=== PATIENT | male | born 1955 | race Caucasian/White ===

== ENCOUNTER 2016-11-16 15:03 | Emergency (ER) ==
[2016-11-16 15:14] VITALS: BMI 49.8
[2016-11-16] MEDS ORDERED: TYLENOL PO STA (15:40)
--- NOTE | 2016-11-16 15:41 | ED.PDOC ---
General ED Provider: Dr. ANA CORREA Chief Complaint: Fever Stated Complaint: patient is a 61 year old male who has a history of renal failure and is on dialysis via a fistular on the left arm. States he has been having a fever for the past 3 days. Highest temp was 102. Had dialysis today prior to arrival. Has had occasional cough for 3 days. has a chronic left foot ulcer and severe chronic lynphedma that is actually better per . Also reports mild left anterior leg pain. Time Seen by Physician: 15:40 Mode of Arrival: Wheelchair Information Source: Patient, Family Exam Limitations: No limitations Primary Care Provider: DUKE KHAN Nursing and Triage Documentation Reviewed and Agree: Yes Miscellaneous Complaint Exam - Febrile Illness/Adult Complaint/Exam Onset/Duration: 3 days Symptoms Are: Still present Timing: Constant Highest Temperature Recorded: 102 Initial Severity: Mild Current Severity: Mild Associated Signs and Symptoms: Denies: Headache, Fluid intake, Short of air, Cough, Sore throat, Nausea, Vomiting, Chills, Diaphoresis, Dysuria, Arthralgia, Stiff neck, Myalgia, Rash, Altered mental status Pseudomonas Risk Factors: Reports: None Serious Bacterial Infection Risk Factors: Reports: None Current Antibiotic Use: No Specific Findings: Absent: Meningeal signs, Diaphoresis, Joint swelling, Erythema, Cellulitis, Lymphadenopathy, Petechiae, CVA tenderness Differential Diagnoses: Bacteremia, Cellulitis Review of Systems - Review Of Systems Constitutional: Reports: Chills, Fever Eyes: Reports: No symptoms Ears, Nose, Mouth, Throat: Reports: No symptoms Respiratory: Reports: Cough Cardiac: Reports: No symptoms GI: Reports: No symptoms : Reports: No symptoms Musculoskeletal: Reports: No symptoms Skin: Reports: Other (left foot wound measuring 4 cm with some slough. ) Neurological: Reports: Anxiety Endocrine: Reports: No symptoms Hematologic/Lymphatic: Reports: No symptoms All Other Systems: Reviewed and Negative Past Medical History - Past Medical History Previously Healthy: No Endocrine: Reports: DM 2 Cardiovascular: Reports: Hypertension Respiratory: Reports: COPD Hematological: Reports: Anemia Gastrointestinal: Reports: None Genitourinary: Reports: Kidney stones, CKD (chronic leg edema) Neuro/Psych: Reports: None Musculoskeletal: Reports: Joint Pain Cancer: Reports: None Other Pertinent Past Medical History: Left foot wound with wound vac - Surgical History General Surgical History: Reports: Orthopedic (left toes amputation, right index finger surgery, nasal surgery ), Other (Dialysis shunt left arm ) - Family History Family History: Reports: Unknown - Social History Smoking Status: Never smoker Hx Substance Use: No Alcohol Screening: None Physical Exam - Physical Exam Appearance: Ill-appearing, Obese Ill-appearing: Severe Pain Distress: Mild Eyes: BONI, EOMI, Conjunctiva clear Neck: Supple Respiratory: Airway patent, Breath sounds clear, Breath sounds equal, Respirations nonlabored Cardiovascular: RRR, Pulses normal, No rub, No murmur Musculoskeletal: Edema (Bilateral. ) Skin: Warm (Left foot wound ), Dry Psychiatric: Anxious Interpretation - Radiology Interpretation Radiology Interpretation By: ED Physician Radiology Results: Negative Exam Interpreted: CXR Physician Notification - Case Discussed Physician Notified: Dr Swan Time of Notification: 17:49 (accepted patient for transfer to [facility] ) Critical Care Note - Critical Care Note Total Time (mins): 0 Course - Course Hematology/Chemistry: 11/16/16 15:45 11/16/16 15:45 Orders, Labs, Meds: Lab Review 11/16/16 11/16/16 11/16/16 15:45 16:10 16:30 WBC 13.42 H RBC 2.64 L Hgb 7.3 L Hct 23.5 L MCV 89.0 MCH 27.7 MCHC 31.1 L RDW Coeff of Mendoza 15.1 H Plt Count 224 Immature Gran % (Auto) 0.4 Neut % (Auto) 80.3 Lymph % (Auto) 11.3 [place] % (Auto) 6.9 Eos % (Auto) 0.9 Baso % (Auto) 0.2 Immature Gran # (Auto) 0.1 Neut # 10.8 H Lymph # 1.5 [place] # 0.9 Eos # 0.1 Baso # 0.0 ESR 108 H Sodium 139 Potassium 3.6 Chloride 95 L Carbon Dioxide 34 H Anion Gap 13.6 BUN 23 H Creatinine 2.63 H Estimated GFR (MDRD) 25.00 BUN/Creatinine Ratio 8.74 Glucose 120 H Calcium 8.5 Total Bilirubin 0.90 AST 18 ALT 14 Alkaline Phosphatase 147 H Total Protein 7.0 Albumin 2.5 L Globulin 4.5 Albumin/Globulin Ratio 0.56 Procalcitonin 0.41 Urine Color Dark Urine Clarity Cloudy Urine pH 5.5 Ur Specific [place] 1.025 Urine Protein 3+ Urine Glucose (UA) 1+ Urine Ketones Negative Urine Blood 2+ Urine Nitrite Negative Urine Bilirubin 1+ Urine Urobilinogen 1.0 Ur Leukocyte Esterase Negative Urine Microscopic RBC 5-10 Urine Microscopic WBC 2-5 Ur Squamous Epith Cells 2-5 Urine Bacteria 1+ Hyaline Casts 0-2 Fine Granular Casts 2-5 Influenza A (Rapid) Negative Influenza B (Rapid) Negative Orders Category Date Time Status ED IV/MEDIPORT/POWERPORT .ONCE EMERGENCY 11/16/16 17:22 Active BLOOD CULTURE Stat LAB 11/16/16 15:45 Received CBC W/ AUTO DIFF Stat LAB 11/16/16 15:45 Completed COMPREHENSIVE METABOLIC PANEL Stat LAB 11/16/16 15:45 Completed ESR Stat LAB 11/16/16 15:45 Completed MOLECULAR GROUP A STREP Stat LAB 11/16/16 16:30 Results PROCALCITONIN Stat LAB 11/16/16 15:45 Completed RAPID FLU A/B Stat LAB 11/16/16 16:30 Completed STREP SCREEN Stat LAB 11/16/16 16:30 Results UA [URINALYSIS C & S IF INDICATED] Stat LAB 11/16/16 16:10 Completed URINE CULTURE Stat LAB 11/16/16 16:10 Received 0.9 % Sodium Chloride [Saline Flush] MEDS 11/16/16 17:21 Ordered 1 syr IVF PRN PRN Acetaminophen [Tylenol] MEDS 11/16/16 15:40 Discontinued 1,000 mg PO ONCE STA Piperacillin Sodium/Tazobactam [Zosyn] 2.25 gm MEDS 11/16/16 17:21 Discontinued 0.9 % Sodium Chloride [Sodium Chloride] 100 ml IV ONCE Vancomycin HCl [Vancomycin] 1 gm MEDS 11/16/16 17:48 Discontinued 0.9 % Sodium Chloride [Sodium Chloride] 250 ml IV ONCE CHEST, 1V AP ONLY Stat RADS 11/16/16 15:28 Completed Medications Generic Name Dose Route Start Last Admin Trade Name Freq PRN Reason Stop Dose Admin Sodium Chloride 1 syr 11/16/16 17:21 11/16/16 18:13 Saline Flush IVF 1 syr PRN PRN Administration To flush IV Discontinued Medications Generic Name Dose Route Start Last Admin Trade Name Freq PRN Reason Stop Dose Admin Acetaminophen 1,000 mg 11/16/16 15:40 11/16/16 15:56 Tylenol PO 11/16/16 15:41 1,000 mg ONCE STA Administration Piperacillin Sod/Tazobactam 100 mls @ 100 mls/hr 11/16/16 17:21 11/16/16 19: 20 Sod 2.25 gm/ Sodium Chloride IV 11/16/16 18:20 100 mls/hr ONCE STA Administration Vancomycin HCl 1 gm/ Sodium 250 mls @ 250 mls/hr 11/16/16 17:48 11/16/16 18: 13 Chloride IV 11/16/16 18:47 250 mls/hr ONCE STA Administration Vital Signs: Temp Pulse Resp BP Pulse Ox 11/16/16 15:04 101 F H 70 16 124/68 93 L Departure - Departure Time of Disposition: 19:55 Disposition: TSF SHORT-TRM HOSP Discharge Problem: Anemia Qualifiers: Anemia type: other cause Other causes of anemia: chronic disease, kidney Qualifier Code: (N18.9) Chronic kidney disease, unspecified Fever Qualifiers: Fever type: other Qualifier Code: (R50.81) Fever presenting with conditions classified elsewhere Condition: Fair Pt referred to PMD for follow-up: No (transfered ) Allergies/Adverse Reactions: Allergies tuberculin, purified protein deriva [Tuberculin,Purif.Prot.Deriv.] Adverse Reaction (Verified 11/16/16 15:13) Home Medications: Ambulatory Orders Furosemide [Lasix Tab] 60 mg PO DAILY 03/26/14 Insulin Aspart [Novolog Insulin] 10 unit SUBCUT AC PRN 03/26/14 Insulin Glargine,Hum.rec.anlog [Lantus] 40 unit SUBCUT DAILY PRN 03/26/14 Carvedilol 6.25 mg PO BID 12/13/15 Gabapentin 300 mg PO TID 12/13/15 Nifedipine [Procardia Xl] 60 mg PO DAILY 12/13/15 Pantoprazole Sodium [Protonix] 40 mg PO DAILY 12/13/15 Pnv95/Ferrous Fumarate/FA [ Multivitamins Tablet] 1 tab PO DAILY Folic Acid 1 mg PO DAILY 11/16/16 Pt. Stabilized Within Hospital's Capabilities/Transferred To: [facility] [place] Disposition Discussed With: Patient, Family
[2016-11-16 16:03] LABS: BASOPHILS % (AUTO) 0.2 % (0.0-3.0); EOSINOPHILS # (AUTO) 0.1 K/ul (0.0-0.7); EOSINOPHILS % (AUTO) 0.9 % (0.0-7.0); HEMATOCRIT 23.5 % (42.0-52.0); HEMOGLOBIN 7.3 g/dl (14.0-18.0); IMMATURE GRANULOCYTE % (AUTO) 0.4 % (0.0-5.0); LYMPHOCYTES # (AUTO) 1.5 K/uL (0.60-3.4); LYMPHOCYTES % (AUTO) 11.3 (10.0-50.0); MEAN CORPUSCULAR HEMOGLOBIN 27.7 pg (27.0-31.0); MEAN CORPUSCULAR HGB CONC 31.1 (31.8-35.4); MONOCYTES # (AUTO) 0.9 K/uL (0.4-2.0); MONOCYTES % (AUTO) 6.9 (0-10); NEUTROPHILS # (AUTO) 10.8 K/ul (2.0-6.9); NEUTROPHILS % (AUTO) 80.3; PLATELET COUNT 224 10^3/uL (140-440); RED BLOOD COUNT 2.64 10^6/ul (4.70-6.10); WHITE BLOOD COUNT 13.42 K/ul (4.2-10.2)
[2016-11-16 16:17] LABS: ALBUMIN 2.5 g/dL (3.4-5.0); ALBUMIN/GLOBULIN RATIO 0.56; ANION GAP 13.6; BILIRUBIN,TOTAL 0.9 mg/dL (0.00-1.20); BUN/CREATININE RATIO 8.74; CALCIUM 8.5 mg/dL (8.2-10.2); CREATININE 2.63 mg/dL (0.60-1.10); POTASSIUM 3.6 mmol/L (3.5-5.1)
[2016-11-16 16:18] LABS: BILIRUBIN,URINE 1+ (NEGATIVE); KETONES,URINE Negative (NEGATIVE); LEUKOCYTE ESTERASE ,URINE Negative (NEGATIVE); NITRITE,URINE Negative (NEGATIVE); PH,URINE 5.5 (5-9); PROTEIN,URINE 3+ (NEGATIVE); URINE, BLOOD 2+ (NEGATIVE)
[2016-11-16 16:19] LABS: ADD URINE MICROSCOPIC YES
[2016-11-16 16:20] LABS: BACTERIA,URINE 1+ (NOT PRESENT)
[2016-11-16 16:39] LABS: ERYTHROCYTE SEDIMENTATION RATE 108 mm/hr (0-15); ESR INTERNAL QC INTERNAL QC VALID
--- NOTE | 2016-11-16 16:39 | DI ---
EXAM: Single view chest COMPARISON: Chest Xray from 03/14/2016 HISTORY: Fever FINDINGS: Lungs are clear with no lobar consolidation, failure, large effusion or significant atel ectasis. Again seen is cardiomegaly. No acute soft tissue or osseous abnormalities. IMPRESSION: 1. No active infiltrate. 2. Cardiomegaly.
[2016-11-16 17:13] LABS: FLU INTERNAL QC INTERNAL QC VALID; RAPID FLU A NEGATIVE (NEGATIVE); RAPID FLU B NEGATIVE (NEGATIVE)
[2016-11-16] MEDS ORDERED: ZOSYN 2.25 GM 2.25 GM in SODIUM CHLORIDE 100 ML IV STA (17:21)
[2016-11-16] MEDS ORDERED: VANCOMYCIN 1 GM in SODIUM CHLORIDE 250 ML IV STA (17:48)
[2016-11-16 21:02] VITALS: BP 159/77; TEMP 100
== END 2016-11-16 20:40 | disposition short-term general hospital (02) ==
LOC: ED 15:03
DX: R50.9 Fever, unspecified (principal); N18.9 Chronic kidney disease, unspecified; D63.1 Anemia in chronic kidney disease; Z99.2 Dependence on renal dialysis; Z87.442 Personal history of urinary calculi; Z79.899 Other long term (current) drug therapy
CPT/HCPCS: 36415; 80053; 81001; 84145; 85025; 85651; 87040; 87086; 87651; 87804; 87880; 96365; 96366; 96367; 99285

== ENCOUNTER 2017-04-11 01:22 | Outpatient (CLI) ==
[2017-04-11 01:48] VITALS: BMI 42.0
== END 2017-04-11 01:23 | disposition home or self-care (01) ==
LOC: AMBL 01:22
PROVIDERS: ATTEND Family Medicine
DX: R11.2 Nausea with vomiting, unspecified (principal); R50.9 Fever, unspecified; N18.9 Chronic kidney disease, unspecified; Z99.2 Dependence on renal dialysis

== ENCOUNTER 2017-04-11 01:38 | Emergency (ER) ==
[2017-04-11 01:48] VITALS: BMI 42.0
[2017-04-11] MEDS ORDERED: SODIUM CHLORIDE 1,000 ML IV STA (01:59)
[2017-04-11] MEDS ORDERED: VANCOMYCIN 1 GM in SODIUM CHLORIDE 250 ML IV STA (02:01)
[2017-04-11 02:15] LABS: BASOPHILS % (AUTO) 0.3 % (0.0-3.0); EOSINOPHILS % (AUTO) 0.3 % (0.0-7.0); HEMATOCRIT 36.3 % (42.0-52.0); HEMOGLOBIN 11.9 g/dl (14.0-18.0); IMMATURE GRANULOCYTE % (AUTO) 0.4 % (0.0-5.0); LYMPHOCYTES # (AUTO) 0.5 K/uL (0.60-3.4); LYMPHOCYTES % (AUTO) 3.7 (10.0-50.0); MEAN CORPUSCULAR HEMOGLOBIN 29.4 pg (27.0-31.0); MEAN CORPUSCULAR HGB CONC 32.8 (31.8-35.4); MEAN CORPUSCULAR VOLUME 89.6 fl (80.0-94.0); MONOCYTES # (AUTO) 0.2 K/uL (0.4-2.0); MONOCYTES % (AUTO) 1.4 (0-10); NEUTROPHILS # (AUTO) 11.8 K/ul (2.0-6.9); NEUTROPHILS % (AUTO) 93.9; PLATELET COUNT 148 10^3/uL (140-440); RED BLOOD COUNT 4.05 10^6/ul (4.70-6.10); WHITE BLOOD COUNT 12.58 K/ul (4.2-10.2)
[2017-04-11 02:41] LABS: ALBUMIN 3.3 g/dL (3.4-5.0); ALBUMIN/GLOBULIN RATIO 0.69; ANION GAP 16.9; BILIRUBIN,TOTAL 0.76 mg/dL (0.00-1.20); BUN/CREATININE RATIO 8.02; CALCIUM 9.1 mg/dL (8.2-10.2); POTASSIUM 3.9 mmol/L (3.5-5.1); TOTAL PROTEIN 8.1 g/dL (5.8-8.1)
[2017-04-11 02:44] LABS: CREATININE 3.74 mg/dL (0.60-1.10)
[2017-04-11 02:48] LABS: ERYTHROCYTE SEDIMENTATION RATE 91 mm/hr (0-15); ESR INTERNAL QC INTERNAL QC VALID
[2017-04-11 03:09] LABS: ABG PCO2 42.8 mmHg (35-45); ABG PH 7.459 (7.35-7.45)
[2017-04-11 03:10] LABS: ABG BASE EXCESS 7 (-2.0-2.0); ABG HCO3 30.4 (22.0-26.0); ABG TCO2 32 (22.0-28.0)
--- NOTE | 2017-04-11 03:17 | CT ---
EXAM: CT chest without intravenous contrast 04/11/2017. Sagittal and coronal reformatted images ob tained HISTORY: Fever COMPARISON: 11/16/2016 FINDINGS: The heart size appears within normal limits. There is no pericardial effusion. There is no pulmonary consolidation, effusion or pneumothorax. Minimal atelectasis. No acute osseous abnormality. IMPRESSION: 1. Minimal atelectasis. No acute superimposed cardiopulmonary process. 2. Anatomic detail partially degraded by motion artifact.
--- NOTE | 2017-04-11 03:22 | CT ---
EXAM: CT abdomen pelvis without intravenous contrast 04/11/2017. Sagittal and coronal reformatted images obtained HISTORY: Abdominal pain and vomiting COMPARISON: 05/25/2014 FINDINGS: The liver and gallbladder show no acute process. The adrenal glands and kidneys show no acute abnormality. No evidence of urinary obstruction. The spleen and pancreas show no acute abnormality. There is no bowel obstruction. Normal appendix. Unremarkable urinary bladder. No free air or free fluid. Left inguinal lymphadenopathy is nonspecific however likely reactive. Chronic degenerative disc disease of the spine. No acute osseous abnormality IMPRESSION: 1. No urinary or bowel obstruction and normal appendix. 2. Nonspecific left inguinal lymphadenopathy. This may be reactive. 3. Technically limited examination due to the lack of intravenous contrast.
--- NOTE | 2017-04-11 03:28 | CT ---
EXAM: CT left foot without intravenous contrast 04/11/2017. Sagittal and coronal reformatted image s obtained HISTORY: Foot wound. Fever COMPARISON: 05/20/2015 FINDINGS: Markedly severe circumferential edema throughout the lower leg, ankle and foot. There ar e postoperative changes with amputation of the distal foot. There is amputation distal to the level of the metatarsals. There is irregularity of the superficial facial soft tissues at the lateral and posterior aspect of the ankle. Additional irregularity is present along the undersurface of the midfoot. Correlate wit h physical examination for areas of possible ulceration. There is no drainable fluid collection or abscess identified. There is no evidence of acute fracture or dislocation. There are multiple subtle areas of lucency which may relate to demineralization. Osteomyelitis christine ot be excluded on the current study. IMPRESSION: 1. Amputation at the distal aspect of the foot. 2. Markedly severe soft tissue edema throughout the lower leg, ankle and foot. 3. Superficial soft tissue defect along the posterior aspect of the ankle as well as the undersurfa ce of the midfoot. Correlate with physical examination for possible areas of ulceration. 4. Chronic osteoarthritic degenerative change. Multifocal lucency which may relate to diffuse ramiro neralization. 5. Osteomyelitis cannot be seen on this study. Further evaluation may be obtained as clinically in dicated.
[2017-04-11 03:36] VITALS: BP 168/72; TEMP 101.1
--- NOTE | 2017-04-11 03:36 | ED.PDOC ---
General ED Provider: Dr. BHUPENDRA WALL-ER Chief Complaint: Nausea/Vomiting Stated Complaint: my fever is up to 103 and i am sick Time Seen by Physician: 01:50 Mode of Arrival: Ambulance Information Source: Patient, Family, EMT Exam Limitations: No limitations Primary Care Provider: DUKE KHAN Nursing and Triage Documentation Reviewed and Agree: Yes Miscellaneous Complaint Exam - Febrile Illness/Adult Complaint/Exam Onset/Duration: 4hrs Symptoms Are: Still present Timing: Constant Highest Temperature Recorded: 103 Initial Severity: Mild Current Severity: Mild Alleviating: Reports: None Associated Signs and Symptoms: Reports: Fluid intake, Nausea, Vomiting, Chills. Denies: Headache, Short of air, Cough, Sore throat, Diaphoresis, Dysuria, Arthralgia, Stiff neck, Myalgia, Rash, Altered mental status Related History: Reports: Similar episode Pseudomonas Risk Factors: Reports: None Current Antibiotic Use: No Specific Findings: Absent: Meningeal signs, Diaphoresis, Joint swelling, Erythema, Cellulitis, Lymphadenopathy, Petechiae, CVA tenderness Differential Diagnoses: Bacteremia Quality Indicator For Non-Traumatic Chest Pain/Syncope: EKG Performed Patient Advised to Stop Smoking: No Review of Systems - Review Of Systems Constitutional: Reports: Chills, Fever, Weakness Eyes: Reports: No symptoms Ears, Nose, Mouth, Throat: Reports: No symptoms Respiratory: Reports: No symptoms Cardiac: Reports: No symptoms GI: Reports: Nausea, Vomiting : Reports: No symptoms Musculoskeletal: Reports: No symptoms Skin: Reports: No symptoms Neurological: Reports: No symptoms Endocrine: Reports: No symptoms Hematologic/Lymphatic: Reports: No symptoms All Other Systems: Reviewed and Negative Past Medical History - Past Medical History Previously Healthy: No Endocrine: Reports: DM 2 Cardiovascular: Reports: Hypertension Respiratory: Reports: COPD Hematological: Reports: Anemia Gastrointestinal: Reports: None Genitourinary: Reports: Kidney stones, CKD (chronic leg edema) Neuro/Psych: Reports: None Musculoskeletal: Reports: Joint Pain Cancer: Reports: None Other Pertinent Past Medical History: Left foot wound with wound vac - Surgical History General Surgical History: Reports: Orthopedic (left toes amputation, right index finger surgery, nasal surgery ), Other (Dialysis shunt left arm ) - Family History Family History: Reports: Unknown - Social History Smoking Status: Never smoker Hx Substance Use: No Alcohol Screening: None Lives: With family - Immunizations Tetanus Shot up to Date: Yes Physical Exam - Physical Exam Appearance: Well-appearing, No pain distress, Well-nourished Ill-appearing: Moderate Eyes: BONI, EOMI, Conjunctiva clear ENT: Ears normal, Nose normal, Oropharynx normal Neck: Supple Respiratory: Airway patent, Breath sounds clear, Breath sounds equal, Respirations nonlabored Cardiovascular: RRR, Pulses normal, No rub, No murmur GI/: Soft, Nontender, No masses, Bowel sounds normal, No Organomegaly Musculoskeletal: Normal strength, ROM intact, No edema, No calf tenderness Skin: Warm, Dry, Normal color Neurological: Sensation intact, Motor intact, Reflexes intact, Cranial nerves intact, Alert, Oriented Psychiatric: Affect appropriate, Mood appropriate Interpretation - Radiology Interpretation Radiology Interpretation By: Radiologist Radiology Results: Negative Exam Interpreted: CT Scan - EKG Interpretation Time of EKG #1: 03:37 Rate: Normal Rhythm: Sinus Ectopy: None [place]: NL ST Segment: Normal Re-Evaluation - Re-Evaluation Time of Re-Evaluation: 03:51 Status: Improved Vital Signs Stable: Yes Pain Level: 0 Appearance: NAD Lungs: Clear Skin: Warm and Dry Neuro: Alert and Oriented X3 CV: RRR Physician Notification - Case Discussed Physician Notified: dr haile Time of Notification: 03:51 Critical Care Note - Critical Care Note Total Time (mins): 0 Course - Course Hematology/Chemistry: 04/11/17 02:10 04/11/17 02:10 Orders, Labs, Meds: Lab Review 04/11/17 04/11/17 01:58 02:10 WBC 12.58 H RBC 4.05 L Hgb 11.9 L Hct 36.3 L MCV 89.6 MCH 29.4 MCHC 32.8 RDW Coeff of Mendoza 14.9 H Plt Count 148 Immature Gran % (Auto) 0.4 Neut % (Auto) 93.9 Lymph % (Auto) 3.7 L [place] % (Auto) 1.4 Eos % (Auto) 0.3 Baso % (Auto) 0.3 Immature Gran # (Auto) 0.1 Neut # 11.8 H Lymph # 0.5 L [place] # 0.2 L Eos # 0.0 Baso # 0.0 ESR 91 H Puncture Site Rb O2 Saturation 92.0 L ABG pH 7.459 H ABG pCO2 42.8 ABG pO2 60.0 L ABG HCO3 30.4 H ABG Total CO2 32 H ABG Base Excess 7 H [place] Test + FiO2 % 21.0 Sodium 136 Potassium 3.9 Chloride 94 L Carbon Dioxide 29 Anion Gap 16.9 BUN 30 H Creatinine 3.74 H* Estimated GFR (MDRD) 17.00 BUN/Creatinine Ratio 8.02 Glucose 233 H Lactic Acid 23.7 H Calcium 9.1 Total Bilirubin 0.76 AST 23 ALT 17 Alkaline Phosphatase 114 Total Protein 8.1 Albumin 3.3 L Globulin 4.8 Albumin/Globulin Ratio 0.69 Procalcitonin 0.63 Orders Category Date Time Status ABG DRAW REQUEST Stat CARDIO 04/11/17 01:58 Completed EKG-(ED ONLY) Stat CARDIO 04/11/17 02:20 Completed ED IV/MEDIPORT/POWERPORT .ONCE EMERGENCY 04/11/17 01:59 Active ABG Stat LAB 04/11/17 01:58 Completed BLOOD CULTURE Stat LAB 04/11/17 02:10 Received CBC W/ AUTO DIFF Stat LAB 04/11/17 02:10 Completed COMPREHENSIVE METABOLIC PANEL Stat LAB 04/11/17 02:10 Completed ESR Stat LAB 04/11/17 02:10 Completed LACTIC ACID Stat LAB 04/11/17 02:10 Completed PROCALCITONIN Stat LAB 04/11/17 02:10 Completed URINALYSIS C & S IF INDICATED Stat LAB 04/11/17 01:58 Uncollected 0.9 % Sodium Chloride [Saline Flush] MEDS 04/11/17 01:59 Ordered 1 syr IVF PRN PRN Sodium Chloride 0.9% [Sodium Chloride] 1,000 ml MEDS 04/11/17 01:59 Active IV 100 mls/hr Vancomycin HCl [Vancomycin] 1 gm MEDS 04/11/17 02:01 Discontinued 0.9 % Sodium Chloride [Sodium Chloride] [address] ABDOMEN/PELVIS WO CONTRAST Stat RADS 04/11/17 02:[address] CHEST W/O CONTRAST Stat RADS 04/11/17 02:[address] FOOT LEFT WITHOUT CONTRAST Stat RADS 04/11/17 02:00 Completed Medications Generic Name Dose Route Start Last Admin Trade Name Freq PRN Reason Stop Dose Admin Sodium Chloride 1,000 mls @ 100 mls/hr 04/11/17 01:59 04/11/17 03:07 Sodium Chloride IV 04/11/17 11:58 100 mls/hr .Q10H STA Administration Sodium Chloride 1 syr 04/11/17 01:59 Saline Flush IVF PRN PRN To flush IV Discontinued Medications Generic Name Dose Route Start Last Admin Trade Name Steven PRN Reason Stop Dose Admin Vancomycin HCl 1 gm/ Sodium 250 mls @ 250 mls/hr 04/11/17 02:01 04/11/17 03: 07 Chloride IV 04/11/17 03:00 250 mls/hr ONCE STA Administration Vital Signs: Temp Pulse Resp BP Pulse Ox 04/11/17 03:35 101.1 F H 82 22 168/72 H 92 L 04/11/17 01:42 102.2 F H 86 20 204/83 H 96 Departure - Departure Time of Disposition: 03:37 Disposition: TSF SHORT-TRM HOSP Discharge Problem: Sepsis Qualifiers: Sepsis type: sepsis due to unspecified organism Qualifier Code: (A41.9) Sepsis , unspecified organism Open wound of foot Qualifiers: Encounter type: initial encounter Laterality: left Qualifier Code: (S91.302A) Unspecified open wound, left foot, initial encounter Instructions: Fever in Adults (ED) Condition: Stable Pt referred to PMD for follow-up: No Allergies/Adverse Reactions: Allergies tuberculin, purified protein deriva [Tuberculin,Purif.Prot.Deriv.] Adverse Reaction (Verified 11/16/16 15:13) Home Medications: Ambulatory Orders Furosemide [Lasix Tab] 60 mg PO DAILY 03/26/14 Insulin Aspart [Novolog Insulin] 10 unit SUBCUT AC PRN 03/26/14 Insulin Glargine,Hum.rec.anlog [Lantus] 40 unit SUBCUT DAILY PRN 03/26/14 Carvedilol 6.25 mg PO BID 12/13/15 Gabapentin 300 mg PO TID 12/13/15 Nifedipine [Procardia Xl] 60 mg PO DAILY 12/13/15 Pantoprazole Sodium [Protonix] 40 mg PO DAILY 12/13/15 Pnv95/Ferrous Fumarate/FA [ Multivitamins Tablet] 1 tab PO DAILY Folic Acid 1 mg PO DAILY 11/16/16 Transfer Form Completed: Yes Disposition Discussed With: Patient, Family
== END 2017-04-11 04:45 | disposition short-term general hospital (02) ==
LOC: ED 01:38
DX: A41.9 Sepsis, unspecified organism (principal); S91.302A Unspecified open wound, left foot, initial encounter; R11.2 Nausea with vomiting, unspecified; R50.9 Fever, unspecified; E11.9 Type 2 diabetes mellitus without complications; I10 Essential (primary) hypertension; R53.1 Weakness; D64.9 Anemia, unspecified; N18.9 Chronic kidney disease, unspecified; Z99.2 Dependence on renal dialysis; Z79.899 Other long term (current) drug therapy; J44.9 Chronic obstructive pulmonary disease, unspecified; Z87.442 Personal history of urinary calculi
CPT/HCPCS: 36415; 80053; 82803; 83605; 84145; 85025; 85651; 87040; 87070; 87186; 93005; 93010; 96361; 96365; 99285

== ENCOUNTER 2018-07-02 17:48 | Outpatient (CLI) | END 2018-07-02 17:49 | disposition home or self-care (01) | LOC: AMBL 17:48 | PROVIDERS: ATTEND Internal Medicine Geriatric Medicine | DX: R53.1 Weakness (principal); R11.2 Nausea with vomiting, unspecified; R50.9 Fever, unspecified ==

== ENCOUNTER 2019-04-19 15:27 | Outpatient (CLI) ==
[2019-04-19 15:48] VITALS: BMI 45.4
== END 2019-04-19 15:33 | disposition critical access hospital (66) ==
LOC: AMBL 15:27
PROVIDERS: ATTEND Internal Medicine
DX: L76.22 Postprocedural hemorrhage of skin and subcutaneous tissue following other procedure (principal)

== ENCOUNTER 2019-04-19 15:42 | Emergency (ER) | payer OTHER ==
[2019-04-19 15:48] VITALS: BP 162/86; TEMP 97.8; BMI 45.4
--- NOTE | 2019-04-19 16:41 | ED.PDOC ---
General ED Provider: Dr. JASON FOURNIER Chief Complaint: Extremity Pain/Injury Stated Complaint: 63 yrs old man with history of bleeding from his left fistula / graft left upper arm. Time Seen by Physician: 15:45 (arrived with no active bleeding noted photos submitted ) Mode of Arrival: Ambulance Information Source: Patient, EMT Exam Limitations: No limitations Primary Care Provider: ANA DINERO Nursing and Triage Documentation Reviewed and Agree: Yes Does patient meet sepsis criteria?: No System Inflammatory Response Syndrome: Not Applicable Sepsis Protocol: For patient's 13 years and over: Temp is 96.8 and below OR 101 and greater Pulse >90 BPM Resp >20/minute Acutely Altered Mental Status Are patient's symptoms suggestive of a new infection, such as: -Pneumonia -Skin, Soft Tissue -Endocarditis -UTI -Bone, Joint Infection -Implantable Device -Acute Abdominal Infection -Wound Infection -Meningitis -Blood Stream Catheter Infection -Unknown Skin Complaint Exam - Lac/Torso/Upper Ext. Complaint/Exam Location of Injury: Left (upper arm 5mm nola noted please see photo) Mechanism of Injury: Laceration (fistula graft) Onset/Duration: 1.5 hr ago Symptoms Are: Still present Initial Severity: Moderate Current Severity: None Aggravating: None Alleviating: Compression Associated Signs and Symptoms: Denies: Fever, Chills, Erythema, Numbness, Tingling Differential Diagnoses: Laceration Review of Systems - Review Of Systems Constitutional: Reports: No symptoms Eyes: Reports: No symptoms Ears, Nose, Mouth, Throat: Reports: No symptoms Respiratory: Reports: No symptoms Cardiac: Reports: No symptoms GI: Reports: No symptoms : Reports: No symptoms Musculoskeletal: Reports: No symptoms Skin: Reports: Other (scab a/v fistula see photo) Neurological: Reports: No symptoms Endocrine: Reports: No symptoms Hematologic/Lymphatic: Reports: No symptoms All Other Systems: Reviewed and Negative Past Medical History - Past Medical History Previously Healthy: No Endocrine: Reports: DM 2 Cardiovascular: Reports: Hypertension Respiratory: Reports: COPD Hematological: Reports: Anemia Gastrointestinal: Reports: None Genitourinary: Reports: Kidney stones, CKD (chronic leg edema) Neuro/Psych: Reports: None Musculoskeletal: Reports: Joint Pain Cancer: Reports: None Other Pertinent Past Medical History: Left foot wound with wound vac - Surgical History General Surgical History: Reports: Orthopedic (left toes amputation, right index finger surgery, nasal surgery ), Other (Dialysis shunt left arm ) - Family History Family History: Reports: Unknown - Social History Smoking Status: Never smoker Hx Substance Use: No Alcohol Screening: None - Immunizations Tetanus Shot up to Date: No Physical Exam - Physical Exam Appearance: Well-appearing, No pain distress, Well-nourished Eyes: BONI, EOMI, Conjunctiva clear ENT: Ears normal, Nose normal, Oropharynx normal Respiratory: Airway patent, Breath sounds clear, Breath sounds equal, Respirations nonlabored Cardiovascular: RRR, Pulses normal, No rub, No murmur GI/: Soft, Nontender, No masses, Bowel sounds normal, No Organomegaly Musculoskeletal: Normal strength, ROM intact, No edema, No calf tenderness Skin: Warm, Dry (5mm hematoma over the fistula site ) Neurological: Sensation intact, Motor intact, Reflexes intact, Cranial nerves intact, Alert, Oriented Psychiatric: Affect appropriate, Mood appropriate Re-Evaluation - Re-Evaluation Time of Re-Evaluation: 16:00 Status: Improved Vital Signs Stable: Yes Pain Level: 0 no bleeding Appearance: NAD Lungs: Clear Skin: Warm and Dry Neuro: Alert and Oriented X3 CV: RRR - Re-Evaluation Time of Re-Evaluation: 17:25 Status: Improved Vital Signs Stable: Yes Pain Level: 0 no bleed Appearance: NAD Skin: Warm and Dry Neuro: Alert and Oriented X3 CV: RRR Physician Notification - Case Discussed Physician Notified: rodolfo Pizarro Time of Notification: 17:26 (TRANSFER ) Physician Notified: JANEEN Time of Notification: 17:26 (TRANSFER ) Critical Care Note - Critical Care Note Total Time (mins): 0 Course - Course Hematology/Chemistry: 04/19/19 16:15 04/19/19 16:15 Orders, Labs, Meds: Lab Review 04/19/19 04/19/19 04/19/19 16:15 16:15 16:15 WBC 9.86 RBC 3.25 L Hgb 9.7 L Hct 30.5 L MCV 93.8 MCH 29.8 MCHC 31.8 RDW Coeff of Mendoza 14.1 Plt Count 197 Immature Gran % (Auto) 1.7 Neut % (Auto) 66.1 Lymph % (Auto) 23.7 [place] % (Auto) 6.0 Eos % (Auto) 2.0 Baso % (Auto) 0.5 Immature Gran # (Auto) 0.2 Neut # (Auto) 6.5 Lymph # (Auto) 2.3 [place] # (Auto) 0.6 Eos # (Auto) 0.2 Baso # (Auto) 0.1 PT 9.6 INR 0.96 APTT 29.3 Sodium 132.0 L Potassium 4.75 Chloride 92.2 L Carbon Dioxide 24.1 Anion Gap 20.45 BUN 87.4 H* Creatinine 7.44 H* Estimated GFR (MDRD) 7.00 BUN/Creatinine Ratio 11.74 Glucose 263.9 H Calcium 9.06 Total Bilirubin 0.35 AST 26.5 ALT 18.0 Alkaline Phosphatase 87.6 Total Protein 7.23 Albumin 3.94 Globulin 3.29 Albumin/Globulin Ratio 1.19 Orders Category Date Time Status CBC W/ AUTO DIFF Stat LAB 04/19/19 16:15 Completed COMPREHENSIVE METABOLIC PANEL Stat LAB 04/19/19 16:15 Completed PARTIAL THROMBOPLASTIN TIME Stat LAB 04/19/19 16:15 Completed PT WITH INR Stat LAB 04/19/19 16:15 Completed Vital Signs: Temp Pulse Resp BP Pulse Ox 04/19/19 15:43 97.8 F 73 16 162/86 H 98 Departure - Departure Time of Disposition: 16:46 Disposition: HOME SELF-CARE Discharge Problem: Renal failure Hemorrhage of arteriovenous fistula Qualifiers: Encounter type: initial encounter Qualified Code(s): T82.838A - Hemorrhage due to vascular prosthetic devices, implants and grafts, initial encounter Instructions: Arteriovenous Graft Creation for Hemodialysis (DC) Condition: Good Pt referred to PMD for follow-up: Yes IPMP verified?: No Additional Instructions: Please call your Family Physician as soon as possible to schedule a follow-up appointment. Allergies/Adverse Reactions: Allergies tuberculin, purified protein deriva [Tuberculin,Purif.Prot.Deriv.] Adverse Reaction (Verified 11/16/16 15:13) Home Medications: Ambulatory Orders Furosemide [Lasix Tab] 60 mg PO DAILY 03/26/14 Insulin Aspart [Novolog Insulin] 10 unit SUBCUT AC PRN 03/26/14 Insulin Glargine,Hum.rec.anlog [Lantus] 40 unit SUBCUT DAILY PRN 03/26/14 Carvedilol 6.25 mg PO BID 12/13/15 Gabapentin 300 mg PO TID 12/13/15 Nifedipine [Procardia Xl] 60 mg PO DAILY 12/13/15 Pantoprazole Sodium [Protonix] 40 mg PO DAILY 12/13/15 Pnv95/Ferrous Fumarate/FA [ Multivitamins Tablet] 1 tab PO DAILY Folic Acid 1 mg PO DAILY 11/16/16 Disposition Discussed With: Patient
== END 2019-04-19 17:30 | disposition home or self-care (01) ==
LOC: ED 15:42
DX: T82.838A Hemorrhage due to vascular prosthetic devices, implants and grafts, initial encounter (principal); N19 Unspecified kidney failure; E11.9 Type 2 diabetes mellitus without complications; I10 Essential (primary) hypertension; N18.9 Chronic kidney disease, unspecified; D63.1 Anemia in chronic kidney disease
CPT/HCPCS: 36415; 80053; 85025; 85610; 85730; 99284

== ENCOUNTER 2019-04-19 17:41 | Outpatient (CLI) ==
[2019-04-19 15:48] VITALS: BMI 45.4
== END 2019-04-19 18:02 | disposition short-term general hospital (02) ==
LOC: AMBL 17:41
PROVIDERS: ATTEND Internal Medicine
DX: L76.22 Postprocedural hemorrhage of skin and subcutaneous tissue following other procedure (principal); Z98.890 Other specified postprocedural states